=== PATIENT | male | born 1995 | race African-American/Black ===

== ENCOUNTER 2018-04-17 12:26 | Emergency (ER) | payer OTHER ==
[2018-04-17] MEDS ORDERED: IBUPROFEN 600 MG TAB PO ONE (12:45)
--- NOTE | 2018-04-17 13:45 | REP ---
CT brain without contrast: History: Trauma. 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 Bone window settings demonstrate an intact bony calvarium. No skull fracture is seen. There is however evidence of a blowout fracture of the medial wall left orbit with intraorbital soft tissue emphysema. No hematoma is appreciated. Visualized paranasal sinuses are otherwise clear. There is no evidence of intracranial hemorrhage. No evidence of pneumocephalus is seen. The lateral, third, fourth ventricles are normal in size and position. Mcdonald-white differentiation pattern is normal above and below the tentorium. There is no evidence of mass, infarct or midline shift. Impression: No skull fracture or intracranial injury seen. Blowout fracture medial wall left orbit with post-traumatic intraorbital soft tissue emphysema. Electronically Signed by Leroy Camp MD 04/17/2018 03:15 P
--- NOTE | 2018-04-17 13:53 | REP ---
MAXILLOFACIAL CT STUDY WITHOUT CONTRAST: HISTORY: Trauma. FINDINGS: There are acute traumatic fractures of both the medial and inferior wall of the left orbit. There is intraorbital soft tissue emphysema. No intraorbital hematoma is seen. There is soft tissue air is seen along the medial wall of the extraconal left orbital soft tissues and in the preseptal region. There is enophthalmos on the left. There is a moderate amount of intraorbital fat herniated into the superior aspect of the left maxillary sinus and there is downward displacement of the inferior rectus muscle. Inferior rectus muscle entrapment cannot be excluded. There is a small quantity of blood with an air-fluid level in the left maxillary sinus. The of other paranasal sinuses are clear. Orbital margins are otherwise intact. No nasal fracture or zygomatic fracture is seen. IMPRESSION: Blowout fractures of the medial and inferior wall of the left orbit with post-traumatic extraconal orbital emphysema, enophthalmus, herniation of intraorbital fat into the superior aspect of the left maxillary sinus with downward displacement of the inferior rectus muscle, question entrapment. Electronically Signed by Leroy Camp MD 04/17/2018 03:16 P
[2018-04-17] MEDS ORDERED: NS 1,000 ML IV SCH (14:10)
[2018-04-17 14:54] VITALS: BP 121/74
== END 2018-04-17 14:55 | disposition short-term general hospital (02) ==
LOC: M ED 12:26
DX: S02.32XA Fracture of orbital floor, left side, initial encounter for closed fracture (principal); X58.XXXA Exposure to other specified factors, initial encounter; Y92.138 Other place on military base as the place of occurrence of the external cause; Y99.1 Military activity

== ENCOUNTER → 2018-09-01 | Outpatient (CLI) | payer OTHER ==
--- NOTE | 2018-09-01 15:12 | REP ---
CT ORBITS WITHOUT CONTRAST: HISTORY: Orbital fracture. There are old fractures of the medial wall and floor of the left orbit. There is inferior displacement of the left orbital floor fracture and left inferior rectus muscle. There is enlargement of the left inferior rectus muscle. A small amount of soft tissue density is present in the inferior left orbit. These findings are consistent with edema and/or hematoma. The remaining left rectus muscles, globe and optic nerve are normal in appearance. Contents of the right orbit are normal. The left frontal sinus is hypoplastic. Minimal mucosal thickening is present in the right ethmoid sinus. The remaining visualized sinuses are clear. IMPRESSION: 1. There are old fractures of the medial wall and floor of the left orbit. 2. Sinus mucosal thickening as described above. Electronically Signed by Oli Hernandez MD 09/01/2018 03:14 P
== END ==
LOC: M RAD 14:11
PROVIDERS: ATTEND Ophthalmology
DX: S02.32XD Fracture of orbital floor, left side, subsequent encounter for fracture with routine healing (principal); H53.2 Diplopia; X58.XXXD Exposure to other specified factors, subsequent encounter; Y92.9 Unspecified place or not applicable

== ENCOUNTER → 2018-10-22 | Outpatient (REF) | payer OTHER ==
[2018-10-22 12:56] LABS: SEMEN APPEARANCE OPAQUE (OPAQUE); SEMEN VISCOSITY LIQUID (LIQUID); SEMEN VOLUME 1.1 ml (2.0-5.0)
[2018-10-22 12:57] LABS: WBC CONCENTRATION >1 M/ml (<=1 M/ml)
[2018-10-22 12:58] LABS: SPERM CONCENTRATION 7.9 M/ml (>=15.0)
== END ==
LOC: M LAB REF 12:19
PROVIDERS: ATTEND Physician Assistant
DX: Z31.41 Encounter for fertility testing (principal)

== ENCOUNTER 2019-03-16 08:34 | Emergency (ER) | payer OTHER ==
[~2019-03-16] VITALS: Ht 185.4 cm; Wt 72.4 kg
[2019-03-16] MEDS ORDERED: NAPR250T4 PO (08:41)
[2019-03-16] MEDS ORDERED: CYCLOBENZAPRINE 10 MG TAB PO ONE (09:15)
--- NOTE | 2019-03-16 09:43 | REP ---
Five views lumbar spine: 03/16/2019. Indication: Low back pain. Comparison: None. Findings: There is no acute fracture, subluxation or dislocation. Disc space height is maintained. Very minimal levoscoliosis of the lumbar spine is present which may be positional. Impression: No acute osseous lumbar spine injury. Electronically Signed by Loi White DO 03/16/2019 09:35 A
[2019-03-16] MEDS ORDERED: CYCL10TA PO (10:22)
[2019-03-16 10:28] VITALS: BP 123/70
== END 2019-03-16 10:30 | disposition home or self-care (01) ==
LOC: M ED 08:34
DX: S39.92XA Unspecified injury of lower back, initial encounter (principal); X50.0XXA Overexertion from strenuous movement or load, initial encounter; Y99.1 Military activity; Y93.B9 Activity, other involving muscle strengthening exercises; Y92.9 Unspecified place or not applicable; Z79.899 Other long term (current) drug therapy